=== PATIENT | female | born 1965 | race Caucasian/White ===

== ENCOUNTER 2018-11-13 00:09 | Inpatient (IN) | payer MEDICAID, OTHER ==
[~2018-11-13] VITALS: Ht 165.1 cm; Wt 101.2 kg
[2018-11-13] VITALS (8 sets, daily range): BP systolic 104–140; BP diastolic 42–78
[2018-11-13 00:48] LABS: BASOPHILS % (AUTO) 0.6 % (0.0-2.0); EOSINOPHILS % (AUTO) 4.7 % (0.0-6.0); HEMATOCRIT 38 % (33-45); HEMOGLOBIN 13.1 g/dL (11.5-14.8); LYMPHOCYTES # (AUTO) 1.5 /CMM (0.8-4.8); LYMPHOCYTES % (AUTO) 21.5 % (20.0-44.0); MEAN CORPUSCULAR HGB CONC 35 g/dl (31.0-36.0); MEAN CORPUSCULAR VOLUME 90 fL (82-100); MONOCYTES # (AUTO) 0.5 /CMM (0.1-1.30); MONOCYTES % (AUTO) 7.3 % (2.0-12.0); NEUTROPHILS # (AUTO) 4.7 /CMM (1.8-8.9); NEUTROPHILS % (AUTO) 65.9 % (43.0-81.0); PLATELET COUNT (AUTO) 176 /CMM (150-450); RED BLOOD CELL COUNT(AUTO) 4.18 MIL/uL (4.0-5.2); WHITE BLOOD COUNT (AUTO) 7.1 K/uL (4.3-11.0)
[2018-11-13] MEDS ORDERED: ASPIRIN 81 MG TAB.CHEW ONE (00:54)
[2018-11-13] MEDS ORDERED: ASPIRIN 81 MG TAB.CHEW PO ONE (01:00)
[2018-11-13 01:07] LABS: CALCIUM, SERUM 8.2 mg/dL (8.5-10.1); CREATININE 0.8 mg/dL (0.6-1.3); POTASSIUM 3.2 mmol/L (3.5-5.1)
--- NOTE | 2018-11-13 01:12 | NUR ---
RECEIVED PT AOX3 HUNGARIAN SPEAKING. ACCOMPANIED BY DAUGHTER, PER DAUGHTER PATIETN FOUND ON THE FLOOR WITH SOB AND BLUISH COLOR. COMPLAINIG OF CHEST PAIN WHEN INHALING, HIP PAIN, AND BACK PAIN. VSS. AFEBRILE. SATURATION 98% ON RA.
[2018-11-13] MEDS ORDERED: FUROSEMIDE 20 MG/2 ML VIAL ONE (01:52)
[2018-11-13] MEDS ORDERED: Magnesium 1GM/D5W 100ML PREMIX PIGGYBACK IV ONE ×2 (02:00→13:30)
[2018-11-13] MEDS ORDERED: FUROSEMIDE 100 MG/10 ML VIAL IV ONE (02:00)
[2018-11-13] MEDS ORDERED: POTASSIUM CHLORIDE 20 MEQ TAB.PRT.SR PO ONE (02:00)
[2018-11-13] MEDS ORDERED: MAG HYDROX/AL HYDROX/SIMETH 30 ML UDC PO PRN (02:30)
[2018-11-13] MEDS ORDERED: Z GUARD REMEDY 2 OZ OINT TP PRN (02:30)
[2018-11-13] MEDS ORDERED: MAGNESIUM HYDROXIDE 30 ML UDC PO PRN (02:30)
[2018-11-13] MEDS ORDERED: ENOXAPARIN SODIUM 40 MG/0.4 ML DISP.SYRIN SQ SCH (02:30)
[2018-11-13] MEDS ORDERED: ONDANSETRON HCL/PF 4 MG/2 ML VIAL IVP PRN (02:30)
[2018-11-13] MEDS ORDERED: HYDROCODONE/APAP 5/325MG 1 EACH TABLET PO PRN (02:30)
--- NOTE | 2018-11-13 03:13 | NUR ---
TRANSFFERED PATIETN TO [facility] FLO[facility] ROOM 112-1 FOR TELE ADMISSION. PT IS STABLE AT THIS TIME. ALL DUEMEDICINE GIVEN ORDERED. AFEBRILE. VSS. REMAINED NSR ON TELE MONITOR. NO ACUTE RESPIRATORY DISTRESS. REPORT GIVEN TO MIRA TAPIA FOR CONTINUITY OF CARE.
--- NOTE | 2018-11-13 07:02 | NUR ---
RN NOTES PT IN STABLE CONDITION. NO ACUTE CHANGES THROUGHOUT SHIFT. NO OVERT SIGNS OF BLEEDING NOTED. ALL NEEDS ANTICIPATED. SAFETY MEASURES OBSERVED AT ALL TIMES. ENDORSED TO AM RN FOR AMELIA
--- NOTE | 2018-11-13 07:30 | NUR ---
WORKFORCE MANAGER OPENING NOTE RECEIVED REPORT FROM PM NURSE,PATIENT IN BED,AXOX4,BRP,[place]ER SPEAKING.ON TELE MONITOR SR,PVC WITH BBB HR63.NO SOB NO DISTRESS NOTED.BED IS LOW AND IN LOCKED POSITION.CALL LIGHT IN REACH.SRX3.WILL CONTINUE TO MONITOR.
[2018-11-13] MEDS: ENOXAPARIN SODIUM 40 MG/0.4 ML DISP.SYRIN SQ SCH (09:48)
[2018-11-13] MEDS ORDERED: FUROSEMIDE 40 MG/4 ML VIAL IV SCH (10:30)
[2018-11-13] MEDS: IPRATROPIUM NEB FS 0.5 MG/2.5 ML AMPUL.NEB NEB SCH ×4 (11:27→23:51)
[2018-11-13] MEDS: ALBUTEROL FS 2.5 MG/0.5 ML VIAL.NEB NEB SCH ×4 (11:27→23:51)
--- NOTE | 2018-11-13 12:00 | NUR ---
MEASURER NOTE SEEN BY UPDATED ABOUT PATIENT CONDITION WITH LABS.GOT NEW ORDERS.WILL CONTINUE TO MONITOR.
--- NOTE | 2018-11-13 13:23 | NUR ---
CLOTH BURLER NOTE PATIENT HAS 12 CYCLES OF V TACH.PATIENT ASYMPTOMATIC.SHE HAS SAME SYMPTOMS SINCE ADMISSION.NO NEW CHEST PAIN. MADE AWARE.GOT NEW ORDER FOR CARDIOLOGY CONSULT, MADE AWARE AND MAG 2G.WILL CONTINUE TO MONITOR.
[2018-11-13] MEDS: Magnesium 1GM/D5W 100ML PREMIX 100 ML IV SCH ×2 (13:32→15:34)
--- NOTE | 2018-11-13 16:00 | NUR ---
TELE MONITOR SEE BY ,UPDATED ABOUT PATIENT CONDITION.GOT NEW ORDERS.
[2018-11-13] MEDS: FUROSEMIDE 40 MG/4 ML VIAL IV SCH ×2 (16:09→20:34)
[2018-11-13] MEDS: methylPREDNISolone SOD SUCC 40 MG/ML VIAL IV SCH (16:09)
[2018-11-13] MEDS: POTASSIUM CHLORIDE 20 MEQ TAB.PRT.SR PO SCH ×3 (16:09→18:29)
[2018-11-13] MEDS: ACETAMINOPHEN 325 MG TABLET PO PRN (16:46)
[2018-11-13] MEDS: MENTHOL/CETYLPYRD (CEPACOL) 1 LOZ LOZENGE PO PRN (16:47)
--- NOTE | 2018-11-13 19:22 | NUR ---
GEAR AND SPLINE GRINDER CLOSING NOTE ,PATIENT IN BED,AXOX4,BRP,SAMOAN SPEAKING.ON TELE MONITOR SR,PVC WITH BBB HR 73.NO SOB NO DISTRESS NOTED.BED IS LOW AND IN LOCKED POSITION.ON CONTINUOUS O2 MONITORING.CALL LIGHT IN REACH.SRX3.ENDORSED TO PM NURSE FOR AMELIA.
--- NOTE | 2018-11-13 20:00 | NUR ---
RN/TELE NOTES: RECEIVED PT. IN BED W/ DAUGHTER BY BEDSIDE. MOSTLY LIBERIAN SPEAKING. A/O X 4. ON TELE MONITOR W/ SR W/ PAC & BBB. CONTINENT OF B/B. RAC G 20 PATENT AND INTACT W/ NO S/S OF INFECTION/INFILTRATION NOTES. BED IS LOW AND IN LOCKED POSITION. ON CONTINUOUS O2 MONITORING. WILL CONTINUE TO MONITOR.
[2018-11-14] VITALS: BP 121/70
[2018-11-14] MEDS: FUROSEMIDE 40 MG/4 ML VIAL IV SCH (00:12)
[2018-11-14] MEDS: IPRATROPIUM NEB FS 0.5 MG/2.5 ML AMPUL.NEB NEB SCH ×4 (03:16→15:10)
[2018-11-14] MEDS: ALBUTEROL FS 2.5 MG/0.5 ML VIAL.NEB NEB SCH ×4 (03:16→15:10)
[2018-11-14] MEDS: ACETAMINOPHEN 325 MG TABLET PO PRN (03:18)
[2018-11-14 04:00] VITALS: BP 109/67
[2018-11-14 04:29] VITALS: BP 109/67
[2018-11-14 06:27] LABS: BASOPHILS % (AUTO) 0.1 % (0.0-2.0); HEMATOCRIT 40 % (33-45); HEMOGLOBIN 13.7 g/dL (11.5-14.8); LYMPHOCYTES # (AUTO) 0.7 /CMM (0.8-4.8); LYMPHOCYTES % (AUTO) 11.9 % (20.0-44.0); MEAN CORPUSCULAR HGB CONC 34 g/dl (31.0-36.0); MEAN CORPUSCULAR VOLUME 90 fL (82-100); MONOCYTES # (AUTO) 0.3 /CMM (0.1-1.30); MONOCYTES % (AUTO) 6.2 % (2.0-12.0); NEUTROPHILS # (AUTO) 4.6 /CMM (1.8-8.9); NEUTROPHILS % (AUTO) 81.8 % (43.0-81.0); PLATELET COUNT (AUTO) 197 /CMM (150-450); RED BLOOD CELL COUNT(AUTO) 4.52 MIL/uL (4.0-5.2); WHITE BLOOD COUNT (AUTO) 5.6 K/uL (4.3-11.0)
[2018-11-14 06:40] LABS: ALANINE AMINOTRANSFERASE 31 U/L (12-78); ALBUMIN 3.8 g/dL (3.4-5.0); ALKALINE PHOSPHATASE 104 U/L (46-116); ASPARTATE AMINOTRANSFERASE 13 U/L (15-37); BILIRUBIN,TOTAL 0.5 mg/dL (0.2-1.0); CALCIUM, SERUM 9.3 mg/dL (8.5-10.1); CARBON DIOXIDE 23 mmol/L (21-32); CHLORIDE 103 mmol/L (98-107); CREATININE 0.8 mg/dL (0.6-1.3); GLUCOSE 140 mg/dL (74-106); MAGNESIUM 2.2 mg/dL (1.8-2.4); PHOSPHORUS 4.2 mg/dL (2.5-4.9); SODIUM SERUM 139 mmol/L (136-145); TOTAL PROTEIN, SERUM 7.7 g/dL (6.4-8.2); UREA NITROGEN, BLOOD 18 mg/dL (7-18)
[2018-11-14 06:54] LABS: CHOLESTEROL 206 mg/dL (<200); HDL CHOLESTEROL 41 mg/dL (40-60); LDL 162 mg/dL (0-99); THYROID STIMULATING HORMONE 1.081 uIU/mL (0.358-3.74); TRIGLYCERIDES 91 mg/dL (30-150)
--- NOTE | 2018-11-14 07:00 | NUR ---
GARMENT TAG STRINGER INITIAL NOTES PT RESTING IN BED, A/OX3. ZAMBIAN SPEAKING. RT AT BEDSIDE. ON TELE SR. PT ON RA O2 SAT 96%. PT IS AMBULATORY WITH ASSIST, COMMODE AT BEDSIDE. [facility] IV SITE NO S/SX OF INFECTION HL. VS WNL. BED IN LOCKED/LOWEST POSITION. CALL LIGHT IN REACH. DR GUILLAUME NOTIFIED POSSIBLE D/C TODAY
--- NOTE | 2018-11-14 07:21 | NUR ---
RN/TELE NOTES: REPORT GIVEN TO NEXT SHIFT NURSE FOR AMELIA.
[2018-11-14 08:00] VITALS: BP 109/58
[2018-11-14] MEDS: methylPREDNISolone SOD SUCC 40 MG/ML VIAL IV SCH ×3 (08:28→16:24)
[2018-11-14] MEDS: ENOXAPARIN SODIUM 40 MG/0.4 ML DISP.SYRIN SQ SCH (08:29)
[2018-11-14] MEDS ORDERED: METOPROLOL TARTRATE INJ 5 MG/5 ML AMPUL ONE (10:32)
[2018-11-14] MEDS ORDERED: CT SWABBABLE VALVE TRANS SET 1 EA INFUS.SET MC ONE (10:43)
[2018-11-14] MEDS ORDERED: IV NS 0.9% 250 ML IV ONE (10:43)
[2018-11-14] MEDS ORDERED: IOHEXOL-350 100 ML VIAL IV ONE (10:43)
[2018-11-14] MEDS ORDERED: METOPROLOL TARTRATE INJ 5 MG/5 ML AMPUL IVP ONE (11:30)
[2018-11-14] MEDS ORDERED: IV NS 0.9% 500 ML IV ONE (11:30)
[2018-11-14] MEDS ORDERED: NITROGLYCERIN 4.9 GM SPRAY SL ONE (11:30)
[2018-11-14 16:00] VITALS: BP 137/75
[2018-11-14] MEDS: MENTHOL/CETYLPYRD (CEPACOL) 1 LOZ LOZENGE PO PRN (17:16)
--- NOTE | 2018-11-14 19:00 | NUR ---
MS RN NOTES PT DISCHARGED WITH DAUGHTER. IV / ID BANDS REMOVED. DISCHARGE INSTRUCTIONS GIVEN WITH PRESCRIPTION. ALL NEEDS ATTENDED TO.
== END 2018-11-14 19:00 | disposition home or self-care (01) | DRG 194 ==
LOC: ER 00:13 → TELE1 02:42 → MEDSG1 11-14 10:28
PROVIDERS: ADMIT Internal Medicine; ATTEND Internal Medicine
DX: I50.31 Acute diastolic (congestive) heart failure (principal); M62.82 Rhabdomyolysis; E44.0 Moderate protein-calorie malnutrition; E66.01 Morbid (severe) obesity due to excess calories; E83.42 Hypomagnesemia; J45.909 Unspecified asthma, uncomplicated; J20.9 Acute bronchitis, unspecified; Z68.35 Body mass index [BMI] 35.0-35.9, adult; I47.1 Supraventricular tachycardia
CPT/HCPCS: 31720; 36415; 71045-TC; 75574; 80048-TC; 80053-TC; 80061-TC; 82550-TC; 83605-TC; 83735-TC; 83880; 84100-TC; 84443-TC; 84484-TC; 85025-TC; 85378-TC; 87081-TC; 87400; 93307-TC; 94760-TC; G0378; J1650; J1940; J2920; J3475; J3490; J7050; Q9967

== ENCOUNTER 2020-02-10 08:28 | Emergency (ER) | payer MEDICAID ==
[~2020-02-10] VITALS: Ht 165.1 cm; Wt 89.8 kg
[2020-02-10 09:30] LABS: BASOPHILS % (AUTO) 0.4 % (0.0-2.0); EOSINOPHILS % (AUTO) 0.9 % (0.0-6.0); HEMATOCRIT 35 % (33-45); HEMOGLOBIN 11.8 g/dL (11.5-14.8); LYMPHOCYTES # (AUTO) 1.1 /CMM (0.8-4.8); MEAN CORPUSCULAR HGB CONC 33 g/dl (31.0-36.0); MEAN CORPUSCULAR VOLUME 90 fL (82-100); MONOCYTES # (AUTO) 0.4 /CMM (0.1-1.30); MONOCYTES % (AUTO) 5.5 % (2.0-12.0); NEUTROPHILS # (AUTO) 5.5 /CMM (1.8-8.9); NEUTROPHILS % (AUTO) 78.2 % (43.0-81.0); PLATELET COUNT (AUTO) 153 /CMM (150-450)
--- NOTE | 2020-02-10 09:35 | NUR ---
PT BIBFAMILY C/O SOB X 1WK. DENIES CP, DIZZINESS, N/V/D, WEAKNESS AT THIS TIME. PT SEEN & EVAL'D BY DR. DONG, WILL CONT TO MONITOR.
[2020-02-10 09:45] LABS: CALCIUM, SERUM 8.7 mg/dL (8.5-10.1); CARBON DIOXIDE 23 mmol/L (21-32); CHLORIDE 110 mmol/L (98-107); CREATININE 0.9 mg/dL (0.6-1.3); GLUCOSE 133 mg/dL (74-106); POTASSIUM 3.4 mmol/L (3.5-5.1); SODIUM SERUM 141 mmol/L (136-145); UREA NITROGEN, BLOOD 8 mg/dL (7-18)
[2020-02-10 09:53] LABS: ALANINE AMINOTRANSFERASE 39 U/L (12-78); ALBUMIN 3.5 g/dL (3.4-5.0); ALKALINE PHOSPHATASE 84 U/L (46-116); ASPARTATE AMINOTRANSFERASE 26 U/L (15-37); B-TYPE NATRIURETIC PEPTIDE 7080 PG/ML (0-125); BILIRUBIN,DIRECT 0.2 mg/dL (0.0-0.2); BILIRUBIN,TOTAL 0.9 mg/dL (0.2-1.0); TOTAL PROTEIN, SERUM 6.4 g/dL (6.4-8.2)
--- NOTE | 2020-02-10 10:20 | NUR ---
CARDIO CALLED SHANT AGRAWAL.
[2020-02-10] MEDS ORDERED: FUROSEMIDE 40 MG/4 ML VIAL IV ONE (10:30)
[2020-02-10] MEDS ORDERED: FUROSEMIDE 40 MG/4 ML VIAL ONE (10:30)
--- NOTE | 2020-02-10 11:26 | NUR ---
[facility] [phone]
[2020-02-10 12:17] VITALS: BP 113/83
--- NOTE | 2020-02-10 12:17 | NUR ---
Patient discharged to home in stable condition. Written and verbal after care instructions given. Patient verbalizes understanding of instruction. IV removed. Catheter intact and site benign. Pressure and 4x4 applied to site. No bleeding noted.
== END 2020-02-10 12:18 | disposition home or self-care (01) ==
LOC: ER 08:30
DX: I50.9 Heart failure, unspecified (principal); R60.0 Localized edema; I45.10 Unspecified right bundle-branch block
CPT/HCPCS: 36415; 71045; 80048; 80076; 83880; 84484; 85025; 93005; 96374; 99285; J1940